=== PATIENT | male | born 1970 | race American Indian/Alaskan Native ===

== ENCOUNTER 2017-10-19 11:44 | Inpatient (IN) | payer BC ==
[2017-10-19 12:21] LABS: Basophils % (Auto) 0.9 % (0.0-1.8); Eosinophils % (Auto) 0.9 % (0.0-4.3); Mean Corpuscular HGB Conc 33 % (32-34); Mean Corpuscular Hemoglobin 32 pg (28-32); Mean Corpuscular Volume 95 fl (84-94); Platelet Count 227 K/mm3 (140-440); Red Blood Count 5.71 M/mm3 (3.65-5.03); Red Cell Distribution Width 13.3 % (13.2-15.2); White Blood Count 12.2 K/mm3 (4.5-11.0)
[2017-10-19 12:33] LABS: INR 0.96 (0.87-1.13)
[2017-10-19 12:42] LABS: Anion Gap 20 mmol/L; BUN/Creatinine Ratio 18; Blood Urea Nitrogen 22 mg/dL (9-20); Calcium 8.4 mg/dL (8.4-10.2); Carbon Dioxide 21 mmol/L (22-30); Chloride 104.4 mmol/L (98-107); Glucose 138 mg/dL (75-100); Potassium 4.5 mmol/L (3.6-5.0); Sodium 141 mmol/L (137-145)
[2017-10-19] MEDS ORDERED: LASIX IV ONE (14:20)
--- NOTE | 2017-10-19 14:23 | Emergency Department Report ---
HPI - General Chief Complaint: Dyspnea/Respdistress Time Seen by Provider: 10/19/17 14:13 - HPI HPI: Room 26 The patient is a 47-year-old male presented with a chief complaint new onset CHF. The patient states for the past 6 months he's had progressive shortness of breath, dyspnea on exertion and bilateral lower extremity edema. The patient states he decided to see his 's cardio tech, Dr. Lynn, today and had an echocardiogram performed in the office which revealed an EF of 20%. Patient was diagnosed with CHF today and sent to the ED for admission. Patient denies any forms of pain. Location: Lungs, lower extremities Duration: Progressive over 6 months Quality: Shortness of breath Severity: Moderate Modifying factors: Exertion worsens symptoms Context: [see above] Mode of transportation: Unknown ED Past Medical Hx - Past Medical History Hx Congestive Heart Failure: Yes (Dx 10/19/2017 EF 20) - Surgical History Past Surgical History?: No - Family History Family history: no significant - Social History Smoking Status: Current Every Day Smoker (1 pack per day) Substance Use Type: None (denies illicit drug use) ED Review of Systems ROS: Stated complaint: SOB Other details as noted in HPI Eyes: denies: eye pain ENT: denies: throat pain Respiratory: shortness of breath, SOB with exertion Cardiovascular: dyspnea on exertion. denies: chest pain Gastrointestinal: nausea. denies: abdominal pain, vomiting Genitourinary: denies: dysuria Musculoskeletal: denies: back pain Neurological: denies: headache Physical Exam - Physical Exam Vital Signs: Vital Signs 10/19/17 10/19/17 10/19/17 11:49 13:25 13:31 Temperature 97.9 F Pulse Rate 100 H 95 H Respiratory 20 12 Rate Blood Pressure 150/107 Blood Pressure [Right] O2 Sat by Pulse 96 93 96 Oximetry 10/19/17 10/19/17 10/19/17 13:40 13:45 14:00 Temperature Pulse Rate 89 92 H 91 H Respiratory 22 16 Rate Blood Pressure 151/115 155/123 Blood Pressure 151/115 [Right] O2 Sat by Pulse 93 94 Oximetry Physical Exam: GENERAL: The patient is well-developed well-nourished male lying on stretcher not appearing to be in acute distress. [] HEENT: Normocephalic. Atraumatic. Extraocular motions are intact. Patient has moist mucous membranes. NECK: Supple. Trachea midline CHEST/LUNGS: Clear to auscultation. There is no respiratory distress noted. HEART/CARDIOVASCULAR: Regular. There is no tachycardia. There is no gallop rub or murmur. ABDOMEN: Abdomen is soft, nontender. Patient has normal bowel sounds. There is no abdominal distention. SKIN: There is no rash. There is 1+ bilateral lower extremity pitting edema. There is no diaphoresis. NEURO: The patient is awake, alert, and oriented. The patient is cooperative. The patient has normal speech MUSCULOSKELETAL: There is no evidence of acute injury. ED Course Vital Signs 10/19/17 10/19/17 10/19/17 11:49 13:25 13:31 Temperature 97.9 F Pulse Rate 100 H 95 H Respiratory 20 12 Rate Blood Pressure 150/107 Blood Pressure [Right] O2 Sat by Pulse 96 93 96 Oximetry 10/19/17 10/19/17 10/19/17 13:40 13:45 14:00 Temperature Pulse Rate 89 92 H 91 H Respiratory 22 16 Rate Blood Pressure 151/115 155/123 Blood Pressure 151/115 [Right] O2 Sat by Pulse 93 94 Oximetry ED Medical Decision Making - Lab Data Result diagrams: 10/19/17 12:06 10/19/17 12:06 Laboratory Tests 10/19/17 10/19/17 10/19/17 12:06 12:06 12:06 WBC 12.2 H RBC 5.71 H Hgb 18.0 H Hct 54.0 H MCV 95 H MCH 32 MCHC 33 RDW 13.3 Plt Count 227 Lymph % (Auto) 21.1 [place] % (Auto) 5.1 Eos % (Auto) 0.9 Baso % (Auto) 0.9 Lymph # 2.6 [place] # 0.6 Eos # 0.1 Baso # 0.1 Seg Neutrophils % 72.0 H Seg Neutrophils # 8.8 H PT 13.3 INR 0.96 APTT 35.0 Sodium 141 Potassium 4.5 Chloride 104.4 Carbon Dioxide 21 L Anion Gap 20 BUN 22 H Creatinine 1.2 Estimated GFR > 60 BUN/Creatinine Ratio 18 Glucose 138 H Calcium 8.4 Magnesium 1.90 Troponin T < 0.010 NT-Pro-B Natriuret Pep 8125 H - EKG Data -: EKG Interpreted by Me EKG shows normal: sinus rhythm Rate: normal - EKG Data When compared to previous EKG there are: previous EKG unavailable Interpretation: other (no ischemic changes seen) - Radiology Data Radiology results: image reviewed (CXR) interpreted by me: CXR- no focal infiltrates. no ptx - Differential Diagnosis CHF, pneumonia, pneumothorax Critical care attestation.: If time is entered above; I have spent that time in minutes in the direct care of this critically ill patient, excluding procedure time. ED Disposition Clinical Impression: Congestive heart failure (CHF), Dyspnea on exertion Disposition: DC-09 OP ADMIT IP TO THIS HOSP Is pt being admited?: Yes Does the pt Need Aspirin: Yes Condition: Fair Time of Disposition: 14:48 (Hospitalist notified Dr Han))
[2017-10-19] MEDS ORDERED: ASPIRIN PO ONE (14:28)
--- NOTE | 2017-10-19 14:34 | Consultation ---
History of Present Illness Consult date: 10/19/17 Requesting physician: SIMONE PEREIRA Consult reason: congestive heart failure History of present illness: The pt is a 47 YO male with a past medical history significant for HTN and tobacco use. He was seen in our office for the first time today by Dr. Soni Lynn. He presented with c/o progressively worsening SOB with activity for the past 6 months. He also c/o some BLE swelling for the past several weeks. He denies any chest pain, orthopnea, palpitations, n/v, diaphoresis, dizziness or syncope. He underwent echocardiogram in our office which preliminarily revealed EF of 20%. Pt denies any prior cardiac history or cardiac evaluation. Past History Past Medical History: hypertension Past Surgical History: No surgical history Social history: , lives with family, smoking. denies: alcohol abuse, prescription drug abuse Family history: no significant family history Medications and Allergies Allergies Allergy/AdvReac Type Severity Reaction Status Date / Time No Known Allergies Allergy Unverified 10/19/17 11:49 Home Medications Medication Instructions Recorded Confirmed Last Taken Type No Known Home Medications [No 10/19/17 10/19/17 Unknown History Reported Home Medications] Review of Systems Constitutional: no weight loss, no weight gain, no fever, no chills, no sweats Ears, nose, mouth and throat: no ear pain, no nose pain, no sinus pressure, no sinus pain Cardiovascular: edema (BLE), shortness of breath, dyspnea on exertion, high blood pressure, leg edema, decreased exercise tolerance, no chest pain, no orthopnea, no palpitations, no rapid/irregular heart beat, no syncope, no lightheadedness, no paroxysmal nocturnal dyspnea Respiratory: shortness of breath, dyspnea on exertion, no cough, no congestion, no wheezing, no pain on inspiration Gastrointestinal: no abdominal pain, no nausea, no vomiting, no diarrhea, no constipation, no change in bowel habits Genitourinary Male: no dysuria, no hematuria, no flank pain, no discharge, no urinary frequency, no urinary hesitancy Musculoskeletal: no neck stiffness, no neck pain, no shooting arm pain, no arm numbness/tingling, no low back pain, no shooting leg pain, no leg numbness/ tingling, no redness of joints Integumentary: no rash, no pruritis, no redness, no sores, no wounds Neurological: no head injury, no paralysis, no weakness, no parathesias, no numbness, no tingling, no seizures, no syncope Psychiatric: no anxiety Endocrine: no cold intolerance, no heat intolerance Hematologic/Lymphatic: no easy bruising, no easy bleeding, no lymphadenopathy Allergic/Immunologic: no urticaria, no wheezing, no persistent infections Physical Examination Vital Signs Temp Pulse Resp BP Pulse Ox 97.9 F 100 H 20 150/107 96 10/19/17 11:49 10/19/17 11:49 10/19/17 11:49 10/19/17 11:49 10/19/17 11:49 General appearance: no acute distress HEENT: Positive: PERRL, Normocephaly, Mucus Membranes Moist Neck: Positive: neck supple, trachea midline Cardiac: Positive: Reg Rate and Rhythm, S1/S2 Lungs: Positive: clear to auscultation Neuro: Positive: Grossly Intact Abdomen: Positive: Soft. Negative: Tender Skin: Negative: Rash Musculoskeletal: No Pain, Normal Range of Motion Extremities: Present: +2 Edema (BLE ) Results 10/19/17 12:06 10/19/17 12:06 Coagulation 10/19/17 Range/Units 12:06 PT 13.3 (12.2-14.9) Sec. INR 0.96 (0.87-1.13) APTT 35.0 (24.2-36.6) Sec. CBC 10/19/17 Range/Units 12:06 WBC 12.2 H (4.5-11.0) K/mm3 RBC 5.71 H (3.65-5.03) M/mm3 Hgb 18.0 H (11.8-15.2) gm/dl Hct 54.0 H (35.5-45.6) % Plt Count 227 (140-440) K/mm3 Lymph # 2.6 (1.2-5.4) K/mm3 [place] # 0.6 (0.0-0.8) K/mm3 Eos # 0.1 (0.0-0.4) K/mm3 Baso # 0.1 (0.0-0.1) K/mm3 Comprehensive Metabolic Panel 10/19/17 Range/Units 12:06 Sodium 141 (137-145) mmol/L Potassium 4.5 (3.6-5.0) mmol/L Chloride 104.4 (98-107) mmol/L Carbon Dioxide 21 L (22-30) mmol/L BUN 22 H (9-20) mg/dL Creatinine 1.2 (0.8-1.5) mg/dL Glucose 138 H (75-100) mg/dL Calcium 8.4 (8.4-10.2) mg/dL - Imaging and Cardiology Echo: pending EKG: report reviewed, image reviewed EKG interpretations - Telemetry EKG Rhythm: Sinus Rhythm - EKG Sinus rhythms and dysrhythmias: sinus rhythm Assessment and Plan Initiate diuresis with IV lasix. Monitor renal indices. Optimize anti-hypertensive regimen. Plan for ischemic evaluation once medically stabilized. Assessment and plan reviewed with pt and pt's at bedside. The patient has been seen in conjunction with Dr. Montoya who agrees with the assessment and plan of care. - Patient Problems (1) Acute systolic heart failure Current Visit: Yes Status: Acute (2) Cardiomyopathy Current Visit: Yes Status: Acute (3) Hypertension Current Visit: Yes Status: Chronic (4) Leukocytosis Current Visit: Yes Status: Acute (5) Tobacco use Current Visit: Yes Status: Chronic
[2017-10-19] MEDS ORDERED: MILK OF MAGNESIA PO PRN (14:53)
[2017-10-19] MEDS ORDERED: ZOFRAN IV PRN (14:53)
[2017-10-19] MEDS ORDERED: DULCOLAX PR PRN (14:53)
[2017-10-19] MEDS ORDERED: PROVENTIL IH PRN (14:53)
[2017-10-19] MEDS ORDERED: TYLENOL PO PRN (14:53)
--- NOTE | 2017-10-19 15:17 | XRay Report ---
AP CHEST: HISTORY: Shortness of breath AP view of the chest demonstrates a normal mediastinal and cardiac contour with clear lungs and normal bony and soft tissue structures. IMPRESSION: Unremarkable AP chest.
--- NOTE | 2017-10-19 16:58 | History and Physical Report ---
History of Present Illness Date of admission: 10/19/17 14:53 Chief complaint: I cant breathe History of present illness: 47 YO Male with HTN, Systolic CHF, Nicotine Dependence presents to ED for evaluation. Pt states that he has experienced shortness of breath and dypsnea on exertion for the past 6 months. Pt was seen in his cardiologists office today and found to have symptoms consistent with acute systolic CHF. Pt underwent Echo and found to have EF of 20%. Pt was sent to ED for evaluation. Pt acknowledges the aforementioned symptoms but denies fever, chills, palpitations, NVD, Syncope, productive cough, BRBPR, unintentional weight loss, night sweats, or recent ill contacts. Pt seen and evaluated in ED and found to have respiratory distress and treated with supplemental oxygen, nebulizer therapy, and diuresis. Cardiology Consulted in ED. Past History Past Medical History: hypertension Past Surgical History: No surgical history Social history: , lives with family, smoking. denies: alcohol abuse, prescription drug abuse Family history: no significant family history Medications and Allergies Allergies Allergy/AdvReac Type Severity Reaction Status Date / Time No Known Allergies Allergy Unverified 10/19/17 11:49 Home Medications Medication Instructions Recorded Confirmed Last Taken Type No Known Home Medications [No 10/19/17 10/19/17 Unknown History Reported Home Medications] Active Meds: Active Medications Acetaminophen (Tylenol) 650 mg PO Q4H PRN PRN Reason: Pain MILD(1-3)/Fever >100.5/AGUIRRE Albuterol (Proventil) 2.5 mg IH Q4HRT PRN PRN Reason: Shortness Of Breath Bisacodyl (Dulcolax) 10 mg NH QDAY PRN PRN Reason: Constipation unrelieved by MOM Carvedilol (Coreg) 25 mg PO BID [place] Furosemide (Lasix) 20 mg IV BID@0600,1800 [place] Hydralazine HCl (Apresoline) 50 mg PO TID [place] Lisinopril (Zestril) 40 mg PO QDAY [place] Magnesium Hydroxide (Milk Of Magnesia) 30 ml PO Q4H PRN PRN Reason: Constipation Ondansetron HCl (Zofran) 4 mg IV Q8H PRN PRN Reason: N/V unrelieved by Reglan Review of Systems Constitutional: no weight loss, no weight gain, no fever, no chills, no sweats Cardiovascular: edema, shortness of breath, dyspnea on exertion, no chest pain, no orthopnea, no palpitations Respiratory: no cough, no cough with sputum, no excessive sputum, no hemoptysis Gastrointestinal: no abdominal pain, no nausea, no vomiting, no diarrhea Genitourinary Male: no hematuria, no flank pain, no urinary frequency, no urinary hesitancy Rectal: no pain, no incontinence, no bleeding Musculoskeletal: no neck stiffness, no neck pain, no shooting arm pain, no arm numbness/tingling Integumentary: no rash, no pruritis, no redness Neurological: no head injury, no paralysis, no weakness, no parathesias, no numbness, no tingling, no seizures Psychiatric: no anxiety, no memory loss, no change in sleep habits, no sleep disturbances, no insomnia, no hypersomnia, no change in appetite, no change in libido Endocrine: no cold intolerance, no heat intolerance, no polyphagia, no excessive thirst, no polydipsia, no polyuria Hematologic/Lymphatic: no easy bruising, no easy bleeding Allergic/Immunologic: no urticaria, no allergic rhinitis, no wheezing Exam - Constitutional Vitals: Temp Pulse Resp BP Pulse Ox 97.9 F 91 H 16 155/123 94 10/19/17 11:49 10/19/17 14:00 10/19/17 14:00 10/19/17 14:00 10/19/17 14:00 General appearance: Present: mild distress - EENT Eyes: Present: PERRL ENT: hearing intact, clear oral mucosa - Neck Neck: Present: supple, normal ROM - Respiratory Respiratory effort: labored Respiratory: bilateral: diminished, rhonchi - Cardiovascular Heart Sounds: Present: S1 & S2. Absent: rub, click - Extremities Extremities: pulses symmetrical, No edema Extremity abnormal: edema Peripheral Pulses: within normal limits - Abdominal General gastrointestinal: Present: soft, non-tender, non-distended, normal bowel sounds Male genitourinary: Present: normal - Integumentary Integumentary: Present: clear, warm, dry - Musculoskeletal Musculoskeletal: gait normal, strength equal bilaterally - Psychiatric Psychiatric: appropriate mood/affect, intact judgment & insight - Neurologic Neurologic: CNII-XII intact, moves all extremities Results - Labs CBC & Chem 7: 10/19/17 12:06 10/19/17 12:06 Labs: Abnormal lab results 10/19/17 10/19/17 Range/Units 12: 12:06 WBC 12.2 H (4.5-11.0) K/mm3 RBC 5.71 H (3.65-5.03) M/mm3 Hgb 18.0 H (11.8-15.2) gm/dl Hct 54.0 H (35.5-45.6) % MCV 95 H (84-94) fl Seg Neutrophils % 72.0 H (40.0-70.0) % Seg Neutrophils # 8.8 H (1.8-7.7) K/mm3 Carbon Dioxide 21 L (22-30) mmol/L BUN 22 H (9-20) mg/dL Glucose 138 H (75-100) mg/dL NT-Pro-B Natriuret Pep 8125 H (0-450) pg/mL Assessment and Plan - Patient Problems (1) Acute systolic heart failure Current Visit: Yes Status: Acute Plan to address problem: Cardiology consulted, Admit to telemetry, fluid restriction, afterload reduction , diuresis, monitor uop q shift. (2) Accelerated hypertension Current Visit: Yes Status: Acute Plan to address problem: monitor bp q shift, continue medical management (3) Respiratory failure Current Visit: Yes Status: Acute Plan to address problem: Supplemental oxygen, nebs, aspiration precautions, supportive care, (4) Nicotine dependence Current Visit: Yes Status: Acute Plan to address problem: Pt refused to pick quit date, (5) DVT prophylaxis Current Visit: Yes Status: Acute
[2017-10-19] MEDS ORDERED: LASIX IV SCH (18:00)
[2017-10-19] MEDS: LASIX IV SCH (18:39)
[2017-10-19] MEDS ORDERED: COREG PO SCH (22:00)
[2017-10-19] MEDS ORDERED: LOPRESSOR PO SCH (22:00)
[2017-10-19] MEDS: APRESOLINE PO SCH (22:23)
[2017-10-20] MEDS: LASIX IV SCH ×2 (06:04→18:15)
[2017-10-20 07:06] LABS: Bilirubin,Urine NEG (Negative); Blood,Urine NEG (Negative); Ketones,Urine NEG (Negative); Leukocyte Esterase,Urine NEG (Negative); Mucus,Urine FEW /HPF; Nitrite,Urine NEG (Negative); Urobilinogen,Urine < 2.0 mg/dL (<2.0)
[2017-10-20 07:21] LABS: Anion Gap 21 mmol/L; BUN/Creatinine Ratio 20; Blood Urea Nitrogen 24 mg/dL (9-20); Calcium 8.5 mg/dL (8.4-10.2); Carbon Dioxide 22 mmol/L (22-30); Chloride 99.6 mmol/L (98-107); Glucose 114 mg/dL (75-100); Potassium 4.6 mmol/L (3.6-5.0); Sodium 138 mmol/L (137-145)
[2017-10-20] MEDS ORDERED: ZESTRIL PO SCH (10:00)
[2017-10-20 10:33] LABS: Hematocrit 56.2 % (35.5-45.6); Hemoglobin 18.8 gm/dl (11.8-15.2); Mean Corpuscular HGB Conc 34 % (32-34); Mean Corpuscular Hemoglobin 32 pg (28-32); Mean Corpuscular Volume 94 fl (84-94); Platelet Count 260 K/mm3 (140-440); Red Blood Count 5.98 M/mm3 (3.65-5.03); Red Cell Distribution Width 12.9 % (13.2-15.2)
--- NOTE | 2017-10-20 11:41 | Progress Note ---
Assessment and Plan He will benefit from coronary angiography for ischemic evaluation and also to better define his cardiomyopathy. The test has been discussed with him in detail and he has agreed to proceed. We'll schedule for tomorrow morning. - Patient Problems (1) Acute combined systolic and diastolic heart failure Current Visit: Yes Status: Acute (2) Cardiomyopathy Current Visit: Yes Status: Acute (3) Accelerated hypertension Current Visit: Yes Status: Acute Subjective Date of service: 10/20/17 Principal diagnosis: Acute combined S&D HF, Accelerated HTN Interval history: He feels much better today. Objective Vital Signs Last Vital Signs Temp 97.2 F L 10/20/17 09:04 Pulse 85 10/20/17 09:04 Resp 18 10/20/17 09:04 BP 128/95 10/20/17 09:04 Pulse Ox 94 10/20/17 09:04 - Physical Examination General: No Apparent Distress HEENT: Positive: Normocephaly, Mucus Membranes Moist Neck: Positive: neck supple, trachea midline, JVD/HJR (elevated) Cardiac: Positive: Reg Rate and Rhythm, S1/S2 Lungs: Positive: clear to auscultation Neuro: Positive: Grossly Intact Abdomen: Positive: Soft, Active Bowel Sounds. Negative: Tender Skin: Negative: Rash Musculoskeletal: Normal Range of Motion Extremities: Absent: edema - Labs and Meds Coagulation 10/19/17 Range/Units 12:06 PT 13.3 (12.2-14.9) Sec. INR 0.96 (0.87-1.13) APTT 35.0 (24.2-36.6) Sec. CBC 10/19/17 10/20/17 Range/Units 12:06 09:18 WBC 12.2 H 13.0 H (4.5-11.0) K/mm3 RBC 5.71 H 5.98 H (3.65-5.03) M/mm3 Hgb 18.0 H 18.8 H (11.8-15.2) gm/dl Hct 54.0 H 56.2 H (35.5-45.6) % Plt Count 227 260 (140-440) K/mm3 Lymph # 2.6 (1.2-5.4) K/mm3 [place] # 0.6 (0.0-0.8) K/mm3 Eos # 0.1 (0.0-0.4) K/mm3 Baso # 0.1 (0.0-0.1) K/mm3 Comprehensive Metabolic Panel 10/19/17 10/20/17 Range/Units 12:06 06:17 Sodium 141 138 (137-145) mmol/L Potassium 4.5 4.6 (3.6-5.0) mmol/L Chloride 104.4 99.6 (98-107) mmol/L Carbon Dioxide 21 L 22 (22-30) mmol/L BUN 22 H 24 H (9-20) mg/dL Creatinine 1.2 1.2 (0.8-1.5) mg/dL Glucose 138 H 114 H (75-100) mg/dL Calcium 8.4 8.5 (8.4-10.2) mg/dL - Imaging and Cardiology EKG: report reviewed, image reviewed Echo: image reviewed (normal LV cavity size with severe global hypokinesis. EF : 15-20%. Restrictive pattern of diastolic LV dysfunction, moderate MR and TR.) - Telemetry EKG Rhythm: Sinus Rhythm - EKG Sinus rhythms and dysrhythmias: sinus rhythm
--- NOTE | 2017-10-20 11:58 | Progress Note ---
<YVON ROSS M - Last Filed: 10/20/17 18:39> History Interval history: I saw and evaluated the patient. I agree with the findings and the plan of care as documented in the PA's progress note, with the following corrections and additions. Hospitalist Physical - Constitutional Vitals: Temp Pulse Resp BP Pulse Ox 98.1 F 73 18 135/97 95 10/20/17 17:50 10/20/17 18:33 10/20/17 17:50 10/20/17 18:33 10/20/17 17:50 Results - Labs CBC & Chem 7: 10/20/17 09:18 10/20/17 06:17 Labs: Laboratory Last Values WBC 13.0 K/mm3 (4.5-11.0) H 10/20/17 09:18 RBC 5.98 M/mm3 (3.65-5.03) H 10/20/17 09:18 Hgb 18.8 gm/dl (11.8-15.2) H 10/20/17 09:18 Hct 56.2 % (35.5-45.6) H 10/20/17 09:18 MCV 94 fl (84-94) 10/20/17 09:18 MCH 32 pg (28-32) 10/20/17 09:18 MCHC 34 % (32-34) 10/20/17 09:18 RDW 12.9 % (13.2-15.2) L 10/20/17 09:18 Plt Count 260 K/mm3 (140-440) 10/20/17 09:18 Lymph % (Auto) 21.1 % (13.4-35.0) 10/19/17 12:06 [place] % (Auto) 5.1 % (0.0-7.3) 10/19/17 12:06 Eos % (Auto) 0.9 % (0.0-4.3) 10/19/17 12:06 Baso % (Auto) 0.9 % (0.0-1.8) 10/19/17 12:06 Lymph # 2.6 K/mm3 (1.2-5.4) 10/19/17 12:06 [place] # 0.6 K/mm3 (0.0-0.8) 10/19/17 12:06 Eos # 0.1 K/mm3 (0.0-0.4) 10/19/17 12:06 Baso # 0.1 K/mm3 (0.0-0.1) 10/19/17 12:06 Seg Neutrophils % 72.0 % (40.0-70.0) H 10/19/17 12:06 Seg Neutrophils # 8.8 K/mm3 (1.8-7.7) H 10/19/17 12:06 PT 13.3 Sec. (12.2-14.9) 10/19/17 12:06 INR 0.96 (0.87-1.13) 10/19/17 12:06 APTT 35.0 Sec. (24.2-36.6) 10/19/17 12:06 D-Dimer 163.83 ng/mlDDU (0-234) 10/20/17 09:18 Sodium 138 mmol/L (137-145) 10/20/17 06:17 Potassium 4.6 mmol/L (3.6-5.0) 10/20/17 06:17 Chloride 99.6 mmol/L (98-107) 10/20/17 06:17 Carbon Dioxide 22 mmol/L (22-30) 10/20/17 06:17 Anion Gap 21 mmol/L 10/20/17 06:17 BUN 24 mg/dL (9-20) H 10/20/17 06:17 Creatinine 1.2 mg/dL (0.8-1.5) 10/20/17 06:17 Estimated GFR > 60 ml/min 10/20/17 06:17 BUN/Creatinine Ratio 20 % 10/20/17 06:17 Glucose 114 mg/dL (75-100) H 10/20/17 06:17 Calcium 8.5 mg/dL (8.4-10.2) 10/20/17 06:17 Magnesium 1.90 mg/dL (1.7-2.3) 10/19/17 12:06 Troponin T < 0.010 ng/mL (0.00-0.029) 10/19/17 20:38 NT-Pro-B Natriuret Pep 8125 pg/mL (0-450) H 10/19/17 12:06 Urine Color Yellow (Yellow) 10/20/17 06:00 Urine Turbidity Clear (Clear) 10/20/17 06:00 Urine pH 5.0 (5.0-7.0) 10/20/17 06:00 Ur Specific [place] 1.016 (1.003-1.030) 10/20/17 06:00 Urine Protein 100 mg/dl mg/dL (Negative) 10/20/17 06:00 Urine Glucose (UA) Neg mg/dL (Negative) 10/20/17 06:00 Urine Ketones Neg mg/dL (Negative) 10/20/17 06:00 Urine Blood Neg (Negative) 10/20/17 06:00 Urine Nitrite Neg (Negative) 10/20/17 06:00 Urine Bilirubin Neg (Negative) 10/20/17 06:00 Urine Urobilinogen < 2.0 mg/dL (<2.0) 10/20/17 06:00 Ur Leukocyte Esterase Neg (Negative) 10/20/17 06:00 Urine WBC (Auto) 2.0 /HPF (0.0-6.0) 10/20/17 06:00 Urine RBC (Auto) 1.0 /HPF (0.0-6.0) 10/20/17 06:00 U Epithel Cells (Auto) < 1.0 /HPF (0-13.0) 10/20/17 06:00 Urine Mucus Few /HPF 10/20/17 06:00 <OBINNA STODDARD - Last Filed: 10/21/17 08:34> Assessment and Plan Assessment and plan: 47 YO Male with HTN, Systolic CHF, Nicotine Dependence presents to ED for evaluation. Pt states that he has experienced shortness of breath and dypsnea on exertion for the past 6 months. Pt was seen in his cardiologists office today and found to have symptoms consistent with acute systolic CHF. Pt underwent Echo and found to have EF of 20%. Pt was sent to ED for evaluation. Pt acknowledges the aforementioned symptoms but denies fever, chills, palpitations, NVD, Syncope, productive cough, BRBPR, unintentional weight loss, night sweats, or recent ill contacts. Pt seen and evaluated in ED and found to have respiratory distress and treated with supplemental oxygen, nebulizer therapy, and diuresis. Acute combined systolic and diastolic heart failure - Cardiology following - coronary angiography for ischemic evaluation tomorrow - Continue fluid restriction, afterload reduction, diuresis, monitor uop q shift. - EF 15-20% Accelerated hypertension -monitor bp q shift, continue medical management Respiratory failure -Supplemental oxygen, nebs, aspiration precautions, supportive care, Nicotine dependence -Nicotine patch -Patient quit date is today DVT prophylaxis Heparin History Interval history: Patient awake and alert, Denies CP,SOB, [place] Hospitalist Physical - Constitutional Vitals: Temp Pulse Resp BP Pulse Ox 97.2 F L 85 18 128/95 94 10/20/17 09:04 10/20/17 09:04 10/20/17 09:04 10/20/17 09:04 10/20/17 09:04 General appearance: Present: no acute distress - EENT Eyes: Present: PERRL, EOM intact ENT: hearing intact, clear oral mucosa - Neck Neck: Present: supple, normal ROM - Respiratory Respiratory effort: normal Respiratory: bilateral: CTA - Cardiovascular Rhythm: regular Heart Sounds: Present: S1 & S2 - Extremities Extremities: no ischemia, No edema Peripheral Pulses: within normal limits - Abdominal General gastrointestinal: soft, non-tender - Integumentary Integumentary: Present: clear, warm, dry - Psychiatric Psychiatric: appropriate mood/affect, cooperative - Neurologic Neurologic: CNII-XII intact, moves all extremities - Allied Health Allied health notes reviewed: nursing Results - Labs CBC & Chem 7: 10/21/17 05:17 10/21/17 05:17 Labs: Laboratory Last Values WBC 13.0 K/mm3 (4.5-11.0) H 10/20/17 09:18 RBC 5.98 M/mm3 (3.65-5.03) H 10/20/17 09:18 Hgb 18.8 gm/dl (11.8-15.2) H 10/20/17 09:18 Hct 56.2 % (35.5-45.6) H 10/20/17 09:18 MCV 94 fl (84-94) 10/20/17 09:18 MCH 32 pg (28-32) 10/20/17 09:18 MCHC 34 % (32-34) 10/20/17 09:18 RDW 12.9 % (13.2-15.2) L 10/20/17 09:18 Plt Count 260 K/mm3 (140-440) 10/20/17 09:18 Lymph % (Auto) 21.1 % (13.4-35.0) 10/19/17 12:06 [place] % (Auto) 5.1 % (0.0-7.3) 10/19/17 12:06 Eos % (Auto) 0.9 % (0.0-4.3) 10/19/17 12:06 Baso % (Auto) 0.9 % (0.0-1.8) 10/19/17 12:06 Lymph # 2.6 K/mm3 (1.2-5.4) 10/19/17 12:06 [place] # 0.6 K/mm3 (0.0-0.8) 10/19/17 12:06 Eos # 0.1 K/mm3 (0.0-0.4) 10/19/17 12:06 Baso # 0.1 K/mm3 (0.0-0.1) 10/19/17 12:06 Seg Neutrophils % 72.0 % (40.0-70.0) H 10/19/17 12:06 Seg Neutrophils # 8.8 K/mm3 (1.8-7.7) H 10/19/17 12:06 PT 13.3 Sec. (12.2-14.9) 10/19/17 12:06 INR 0.96 (0.87-1.13) 10/19/17 12:06 APTT 35.0 Sec. (24.2-36.6) 10/19/17 12:06 D-Dimer 163.83 ng/mlDDU (0-234) 10/20/17 09:18 Sodium 138 mmol/L (137-145) 10/20/17 06:17 Potassium 4.6 mmol/L (3.6-5.0) 10/20/17 06:17 Chloride 99.6 mmol/L (98-107) 10/20/17 06:17 Carbon Dioxide 22 mmol/L (22-30) 10/20/17 06:17 Anion Gap 21 mmol/L 10/20/17 06:17 BUN 24 mg/dL (9-20) H 10/20/17 06:17 Creatinine 1.2 mg/dL (0.8-1.5) 10/20/17 06:17 Estimated GFR > 60 ml/min 10/20/17 06:17 BUN/Creatinine Ratio 20 % 10/20/17 06:17 Glucose 114 mg/dL (75-100) H 10/20/17 06:17 Calcium 8.5 mg/dL (8.4-10.2) 10/20/17 06:17 Magnesium 1.90 mg/dL (1.7-2.3) 10/19/17 12:06 Troponin T < 0.010 ng/mL (0.00-0.029) 10/19/17 20:38 NT-Pro-B Natriuret Pep 8125 pg/mL (0-450) H 10/19/17 12:06 Urine Color Yellow (Yellow) 10/20/17 06:00 Urine Turbidity Clear (Clear) 10/20/17 06:00 Urine pH 5.0 (5.0-7.0) 10/20/17 06:00 Ur Specific [place] 1.016 (1.003-1.030) 10/20/17 06:00 Urine Protein 100 mg/dl mg/dL (Negative) 10/20/17 06:00 Urine Glucose (UA) Neg mg/dL (Negative) 10/20/17 06:00 Urine Ketones Neg mg/dL (Negative) 10/20/17 06:00 Urine Blood Neg (Negative) 10/20/17 06:00 Urine Nitrite Neg (Negative) 10/20/17 06:00 Urine Bilirubin Neg (Negative) 10/20/17 06:00 Urine Urobilinogen < 2.0 mg/dL (<2.0) 10/20/17 06:00 Ur Leukocyte Esterase Neg (Negative) 10/20/17 06:00 Urine WBC (Auto) 2.0 /HPF (0.0-6.0) 10/20/17 06:00 Urine RBC (Auto) 1.0 /HPF (0.0-6.0) 10/20/17 06:00 U Epithel Cells (Auto) < 1.0 /HPF (0-13.0) 10/20/17 06:00 Urine Mucus Few /HPF 10/20/17 06:00
[2017-10-20] MEDS ORDERED: NACL 0.9% 500 ML 500 ML IV SCH (12:00)
[2017-10-20] MEDS: APRESOLINE PO SCH ×3 (12:28→21:30)
[2017-10-20] MEDS: HABITROL TD SCH (12:29)
[2017-10-20] MEDS: COREG PO SCH ×2 (12:31→22:45)
[2017-10-20] MEDS: ZESTRIL PO SCH (17:00)
[2017-10-20] MEDS: HEPARIN SUB-Q SCH (22:46)
[2017-10-21 05:46] LABS: Hemoglobin 19.9 gm/dl (11.8-15.2); Mean Corpuscular HGB Conc 34 % (32-34); Mean Corpuscular Hemoglobin 32 pg (28-32); Mean Corpuscular Volume 93 fl (84-94); Platelet Count 269 K/mm3 (140-440); Red Blood Count 6.33 M/mm3 (3.65-5.03); Red Cell Distribution Width 13.2 % (13.2-15.2)
[2017-10-21 05:56] LABS: INR 1.03 (0.87-1.13)
[2017-10-21 06:03] LABS: Anion Gap 22 mmol/L; BUN/Creatinine Ratio 21; Blood Urea Nitrogen 30 mg/dL (9-20); Calcium 8.9 mg/dL (8.4-10.2); Carbon Dioxide 21 mmol/L (22-30); Glucose 126 mg/dL (75-100); Potassium 5.1 mmol/L (3.6-5.0); Sodium 138 mmol/L (137-145)
[2017-10-21] MEDS: LASIX IV SCH (07:00)
[2017-10-21] MEDS: HEPARIN SUB-Q SCH ×3 (07:00→22:04)
[2017-10-21] MEDS ORDERED: ECOTRIN PO NR (08:00)
[2017-10-21] MEDS ORDERED: ECOTRIN PO ONE (08:06)
[2017-10-21] MEDS ORDERED: HEPARIN 10,000 UNITS/10 ML ONE (08:27)
[2017-10-21] MEDS ORDERED: HEPARIN/NS 5000 UNIT/500ML(CATH LAB) 1,000 ML IR ONE (08:27)
[2017-10-21] MEDS ORDERED: NITROGLYCERIN SYRINGE 3 ML ONE (08:27)
[2017-10-21] MEDS ORDERED: XYLOCAINE 2% INFILTRATI ONE (08:27)
[2017-10-21] MEDS ORDERED: CALAN ONE (08:27)
[2017-10-21] MEDS ORDERED: VERSED ONE (08:28)
[2017-10-21] MEDS ORDERED: SUBLIMAZE ONE (08:29)
[2017-10-21] MEDS: APRESOLINE PO SCH ×3 (08:39→22:03)
[2017-10-21] MEDS ORDERED: NACL 0.9% 500 ML 500 ML ONE (08:48)
--- NOTE | 2017-10-21 09:14 | Progress Note ---
Assessment and Plan acute systolic heart failure non ischemic cmp htn polycethymia smoking cessation recommended rec: cont current meds, low dose lasix every other day and followup with cardiology next week. discuss with pt and results. Subjective Date of service: 10/21/17 Principal diagnosis: Acute combined S&D HF, Accelerated HTN Interval history: pt sob is improved and able to ly flat Objective Vital Signs Temp Pulse Resp BP BP Pulse Ox 10/21/17 07:37 97.5 F L 74 18 128/89 94 10/21/17 05:30 71 10/21/17 04:40 98.2 F 74 18 123/90 93 10/20/17 22:45 81 121/96 10/20/17 22:03 9 L 10/20/17 22:00 77 10/20/17 21:30 81 121/96 10/20/17 19:49 97.9 F 71 22 121/96 95 10/20/17 18:33 73 135/97 10/20/17 17:50 98.1 F 76 18 144/96 95 10/20/17 17:00 76 144/96 10/20/17 13:00 98.3 F 79 18 117/88 97 10/20/17 12:31 73 135/97 10/20/17 12:28 73 135/97 10/20/17 10:00 94 - Physical Examination General: No Apparent Distress HEENT: Positive: Normocephaly, Mucus Membranes Moist Neck: Positive: neck supple, trachea midline, JVD/HJR (elevated) Cardiac: Positive: Reg Rate and Rhythm Lungs: Positive: clear to auscultation Neuro: Positive: Grossly Intact Abdomen: Positive: Soft, Active Bowel Sounds. Negative: Tender Skin: Negative: Rash Musculoskeletal: Normal Range of Motion Extremities: Absent: edema - Labs and Meds Coagulation 10/21/17 Range/Units 05:17 PT 14.0 (12.2-14.9) Sec. INR 1.03 (0.87-1.13) CBC 10/20/17 10/21/17 Range/Units 09:18 05:17 WBC 13.0 H 15.0 H (4.5-11.0) K/mm3 RBC 5.98 H 6.33 H (3.65-5.03) M/mm3 Hgb 18.8 H 19.9 H (11.8-15.2) gm/dl Hct 56.2 H 59.0 H (35.5-45.6) % Plt Count 260 269 (140-440) K/mm3 Comprehensive Metabolic Panel 10/21/17 Range/Units 05:17 Sodium 138 (137-145) mmol/L Potassium 5.1 H (3.6-5.0) mmol/L Chloride 100.0 (98-107) mmol/L Carbon Dioxide 21 L (22-30) mmol/L BUN 30 H (9-20) mg/dL Creatinine 1.4 (0.8-1.5) mg/dL Glucose 126 H (75-100) mg/dL Calcium 8.9 (8.4-10.2) mg/dL - Imaging and Cardiology EKG: report reviewed, image reviewed Echo: image reviewed (normal LV cavity size with severe global hypokinesis. EF : 15-20%. Restrictive pattern of diastolic LV dysfunction, moderate MR and TR.) Cardiac cath: report reviewed (normal coronaries and severe lv dsyfunction ) - Telemetry EKG Rhythm: Sinus Rhythm - EKG Sinus rhythms and dysrhythmias: sinus rhythm
[2017-10-21] MEDS ORDERED: LASIX PO SCH (10:00)
--- NOTE | 2017-10-21 10:12 | Progress Note ---
<OBINNA STODDARD - Last Filed: 10/24/17 13:38> Assessment and Plan Assessment and plan: 47 YO Male with HTN, Systolic CHF, Nicotine Dependence presents to ED for evaluation. Pt states that he has experienced shortness of breath and dypsnea on exertion for the past 6 months. Pt was seen in his cardiologists office today and found to have symptoms consistent with acute systolic CHF. Pt underwent Echo and found to have EF of 20%. Pt was sent to ED for evaluation. Pt acknowledges the aforementioned symptoms but denies fever, chills, palpitations, NVD, Syncope, productive cough, BRBPR, unintentional weight loss, night sweats, or recent ill contacts. Pt seen and evaluated in ED and found to have respiratory distress and treated with supplemental oxygen, nebulizer therapy, and diuresis. Acute systolic heart failure - Cardiology following - s/p [facility] this AM which showed normal coronary arteries , severe LV dysfunction, NICMP. Hold diuretics at this time given increase in serum Cr and repeat BMP in AM. Likely discharge home tomorrow AM. - Continue fluid restriction, afterload reduction, monitor uop q shift. - EF 15-20% Accelerated hypertension -monitor bp q shift, continue medical management Respiratory failure -Supplemental oxygen, nebs, aspiration precautions, supportive care, Nicotine dependence -Nicotine patch -Patient trying to quit DVT prophylaxis Heparin History Interval history: Patient awake and alert, Denies CP,SOB, [place] Hospitalist Physical - Constitutional Vitals: Temp Pulse Resp BP Pulse Ox 97.5 F L 74 18 128/89 94 10/21/17 07:37 10/21/17 07:37 10/21/17 07:37 10/21/17 07:37 10/21/17 07:37 General appearance: Present: no acute distress - EENT Eyes: Present: PERRL, EOM intact ENT: hearing intact, clear oral mucosa - Neck Neck: Present: supple, normal ROM - Respiratory Respiratory effort: normal Respiratory: bilateral: CTA - Cardiovascular Rhythm: regular Heart Sounds: Present: S1 & S2 - Extremities Extremities: no ischemia, No edema Peripheral Pulses: within normal limits - Abdominal General gastrointestinal: soft, non-tender - Integumentary Integumentary: Present: clear, warm, dry - Psychiatric Psychiatric: appropriate mood/affect, cooperative - Neurologic Neurologic: CNII-XII intact, moves all extremities - Allied Health Allied health notes reviewed: nursing Results - Labs CBC & Chem 7: 10/21/17 05:17 12 05:17 Labs: Laboratory Last Values WBC 15.0 K/mm3 (4.5-11.0) H 10/21/17 05:17 RBC 6.33 M/mm3 (3.65-5.03) H 10/21/17 05:17 Hgb 19.9 gm/dl (11.8-15.2) H 10/21/17 05:17 Hct 59.0 % (35.5-45.6) H 10/21/17 05:17 MCV 93 fl (84-94) 10/21/17 05:17 MCH 32 pg (28-32) 10/21/17 05:17 MCHC 34 % (32-34) 10/21/17 05:17 RDW 13.2 % (13.2-15.2) 10/21/17 05:17 Plt Count 269 K/mm3 (140-440) 10/21/17 05:17 Lymph % (Auto) 21.1 % (13.4-35.0) 10/19/17 12:06 [place] % (Auto) 5.1 % (0.0-7.3) 10/19/17 12:06 Eos % (Auto) 0.9 % (0.0-4.3) 10/19/17 12:06 Baso % (Auto) 0.9 % (0.0-1.8) 10/19/17 12:06 Lymph # 2.6 K/mm3 (1.2-5.4) 10/19/17 12:06 [place] # 0.6 K/mm3 (0.0-0.8) 10/19/17 12:06 Eos # 0.1 K/mm3 (0.0-0.4) 10/19/17 12:06 Baso # 0.1 K/mm3 (0.0-0.1) 10/19/17 12:06 Seg Neutrophils % 72.0 % (40.0-70.0) H 10/19/17 12:06 Seg Neutrophils # 8.8 K/mm3 (1.8-7.7) H 10/19/17 12:06 PT 14.0 Sec. (12.2-14.9) 10/21/17 05:17 INR 1.03 (0.87-1.13) 10/21/17 05:17 APTT 35.0 Sec. (24.2-36.6) 10/19/17 12:06 D-Dimer 163.83 ng/mlDDU (0-234) 10/20/17 09:18 Sodium 138 mmol/L (137-145) 10/21/17 05:17 Potassium 5.1 mmol/L (3.6-5.0) H 10/21/17 05:17 Chloride 100.0 mmol/L (98-107) 10/21/17 05:17 Carbon Dioxide 21 mmol/L (22-30) L 10/21/17 05:17 Anion Gap 22 mmol/L 10/21/17 05:17 BUN 30 mg/dL (9-20) H 10/21/17 05:17 Creatinine 1.4 mg/dL (0.8-1.5) 10/21/17 05:17 Estimated GFR > 60 ml/min 10/21/17 05:17 BUN/Creatinine Ratio 21 % 10/21/17 05:17 Glucose 126 mg/dL (75-100) H 10/21/17 05:17 Calcium 8.9 mg/dL (8.4-10.2) 10/21/17 05:17 Magnesium 1.90 mg/dL (1.7-2.3) 10/19/17 12:06 Troponin T < 0.010 ng/mL (0.00-0.029) 10/19/17 20:38 NT-Pro-B Natriuret Pep 8125 pg/mL (0-450) H 10/19/17 12:06 Urine Color Yellow (Yellow) 10/20/17 06:00 Urine Turbidity Clear (Clear) 10/20/17 06:00 Urine pH 5.0 (5.0-7.0) 10/20/17 06:00 Ur Specific [place] 1.016 (1.003-1.030) 10/20/17 06:00 Urine Protein 100 mg/dl mg/dL (Negative) 10/20/17 06:00 Urine Glucose (UA) Neg mg/dL (Negative) 10/20/17 06:00 Urine Ketones Neg mg/dL (Negative) 10/20/17 06:00 Urine Blood Neg (Negative) 10/20/17 06:00 Urine Nitrite Neg (Negative) 10/20/17 06:00 Urine Bilirubin Neg (Negative) 10/20/17 06:00 Urine Urobilinogen < 2.0 mg/dL (<2.0) 10/20/17 06:00 Ur Leukocyte Esterase Neg (Negative) 10/20/17 06:00 Urine WBC (Auto) 2.0 /HPF (0.0-6.0) 10/20/17 06:00 Urine RBC (Auto) 1.0 /HPF (0.0-6.0) 10/20/17 06:00 U Epithel Cells (Auto) < 1.0 /HPF (0-13.0) 10/20/17 06:00 Urine Mucus Few /HPF 10/20/17 06:00 <YVON ROSS M - Last Filed: 10/24/17 18:24> Assessment and Plan Assessment and plan: I saw and evaluated the patient. I agree with the findings and the plan of care as documented in the PA's progress note. - Patient Problems (1) Accelerated hypertension Status: Acute (2) Acute systolic heart failure Status: Acute Hospitalist Physical - Constitutional Vitals: Temp Pulse Resp BP Pulse Ox 98.2 F 73 18 116/83 93 10/22/17 09:22 10/22/17 11:09 10/22/17 10:00 10/22/17 11:09 10/22/17 10:00 Results - Labs CBC & Chem 7: 10/22/17 02:36 10/22/17 02:36 Labs: Laboratory Last Values WBC 14.0 K/mm3 (4.5-11.0) H 10/22/17 02:36 RBC 6.09 M/mm3 (3.65-5.03) H 10/22/17 02:36 Hgb 19.0 gm/dl (11.8-15.2) H 10/22/17 02:36 Hct 56.7 % (35.5-45.6) H 10/22/17 02:36 MCV 93 fl (84-94) 10/22/17 02:36 MCH 31 pg (28-32) 10/22/17 02:36 MCHC 34 % (32-34) 10/22/17 02:36 RDW 13.0 % (13.2-15.2) L 10/22/17 02:36 Plt Count 275 K/mm3 (140-440) 10/22/17 02:36 Lymph % (Auto) 21.1 % (13.4-35.0) 10/19/17 12:06 [place] % (Auto) 5.1 % (0.0-7.3) 10/19/17 12:06 Eos % (Auto) 0.9 % (0.0-4.3) 10/19/17 12:06 Baso % (Auto) 0.9 % (0.0-1.8) 10/19/17 12:06 Lymph # 2.6 K/mm3 (1.2-5.4) 10/19/17 12:06 [place] # 0.6 K/mm3 (0.0-0.8) 10/19/17 12:06 Eos # 0.1 K/mm3 (0.0-0.4) 10/19/17 12:06 Baso # 0.1 K/mm3 (0.0-0.1) 10/19/17 12:06 Seg Neutrophils % 72.0 % (40.0-70.0) H 10/19/17 12:06 Seg Neutrophils # 8.8 K/mm3 (1.8-7.7) H 10/19/17 12:06 PT 14.0 Sec. (12.2-14.9) 10/21/17 05:17 INR 1.03 (0.87-1.13) 10/21/17 05:17 APTT 35.0 Sec. (24.2-36.6) 10/19/17 12:06 D-Dimer 163.83 ng/mlDDU (0-234) 10/20/17 09:18 Sodium 137 mmol/L (137-145) 10/22/17 02:36 Potassium 3.9 mmol/L (3.6-5.0) D 10/22/17 02:36 Chloride 98.6 mmol/L (98-107) 10/22/17 02:36 Carbon Dioxide 24 mmol/L (22-30) 10/22/17 02:36 Anion Gap 18 mmol/L 10/22/17 02:36 BUN 28 mg/dL (9-20) H 10/22/17 02:36 Creatinine 1.1 mg/dL (0.8-1.5) 10/22/17 02:36 Estimated GFR > 60 ml/min 10/22/17 02:36 BUN/Creatinine Ratio 25 % 10/22/17 02:36 Glucose 122 mg/dL (75-100) H 10/22/17 02:36 POC Glucose 108 (70-105) H 10/21/17 07:15 Calcium 8.5 mg/dL (8.4-10.2) 10/22/17 02:36 Phosphorus 4.50 mg/dL (2.5-4.5) 10/22/17 02:36 Magnesium 1.90 mg/dL (1.7-2.3) 10/22/17 02:36 Troponin T < 0.010 ng/mL (0.00-0.029) 10/19/17 20:38 NT-Pro-B Natriuret Pep 8125 pg/mL (0-450) H 10/19/17 12:06 Urine Color Yellow (Yellow) 10/20/17 06:00 Urine Turbidity Clear (Clear) 10/20/17 06:00 Urine pH 5.0 (5.0-7.0) 10/20/17 06:00 Ur Specific [place] 1.016 (1.003-1.030) 10/20/17 06:00 Urine Protein 100 mg/dl mg/dL (Negative) 10/20/17 06:00 Urine Glucose (UA) Neg mg/dL (Negative) 10/20/17 06:00 Urine Ketones Neg mg/dL (Negative) 10/20/17 06:00 Urine Blood Neg (Negative) 10/20/17 06:00 Urine Nitrite Neg (Negative) 10/20/17 06:00 Urine Bilirubin Neg (Negative) 10/20/17 06:00 Urine Urobilinogen < 2.0 mg/dL (<2.0) 10/20/17 06:00 Ur Leukocyte Esterase Neg (Negative) 10/20/17 06:00 Urine WBC (Auto) 2.0 /HPF (0.0-6.0) 10/20/17 06:00 Urine RBC (Auto) 1.0 /HPF (0.0-6.0) 10/20/17 06:00 U Epithel Cells (Auto) < 1.0 /HPF (0-13.0) 10/20/17 06:00 Urine Mucus Few /HPF 10/20/17 06:00
--- NOTE | 2017-10-21 10:41 | Cardiac Catherization Report ---
LEFT HEART CATHETERIZATION CLINICAL INFORMATION: A 47-year-old gentleman with acute systolic heart failure with ejection fraction of 25%, is here for left heart catheterization for definitive diagnosis of coronary artery disease, cardiomyopathy. PROCEDURE: Left heart catheterization was performed via the right radial artery, sterile technique, local anesthesia, 6-Belgian radial sheath. PROCEDURE FINDINGS: Left system engaged with JL3.5 catheter. Left main large and patent, bifurcates into large LAD, is patent. Diagonal 1 is a medium caliber vessel, it is patent. Circumflex medium to large caliber vessel that is patent. OM1 is small caliber vessel. OM2 medium caliber vessel, it is patent. RCA is a large engaged with JR4 catheter, is a large dominant vessel, patent from proximally and distally. PDA and PLV are medium caliber vessels, patent. LV gram done in BIBI and ORTIZ view shows severe LV dysfunction, EF 25%. LVEDP of 12 mmHg, LV is 109/12. Aortic is 109/81. No gradient across the aortic valve on pullback. 5-Belgian catheters were taken over guidewire, 6-Belgian radial sheath was discontinued. Radial dressing applied. No hematoma, no bleeding. SUMMARY: 1. Normal coronary arteries, severe LV dysfunction. Right dominant system. Normal left end-diastolic pressure. 2. Nonischemic cardiomyopathy. Continue risk factor modification. Discussed results with the patient in detail. JOB# [id number] LIA/MIMA
--- NOTE | 2017-10-21 10:55 | Event Note ---
Date: 10/21/17 s/p [facility] this AM which showed normal coronary arteries, severe LV dysfunction, NICMP. Hold diuretics at this time given increase in serum Cr and repeat BMP in AM. Likely discharge home tomorrow AM. Kayode GALLEGOS NP / DR. CONROY
[2017-10-21] MEDS: ZESTRIL PO SCH (15:00)
[2017-10-21] MEDS: COREG PO SCH ×2 (15:00→22:03)
[2017-10-21] MEDS: HABITROL TD SCH (16:32)
[2017-10-22 02:54] LABS: Hematocrit 56.7 % (35.5-45.6); Mean Corpuscular HGB Conc 34 % (32-34); Mean Corpuscular Hemoglobin 31 pg (28-32); Mean Corpuscular Volume 93 fl (84-94); Platelet Count 275 K/mm3 (140-440); Red Blood Count 6.09 M/mm3 (3.65-5.03)
[2017-10-22 03:17] LABS: BUN/Creatinine Ratio 25; Blood Urea Nitrogen 28 mg/dL (9-20); Calcium 8.5 mg/dL (8.4-10.2); Carbon Dioxide 24 mmol/L (22-30); Glucose 122 mg/dL (75-100)
[2017-10-22 03:32] LABS: Anion Gap 18 mmol/L; Chloride 98.6 mmol/L (98-107); Potassium 3.9 mmol/L (3.6-5.0); Sodium 137 mmol/L (137-145)
[2017-10-22] MEDS: HEPARIN SUB-Q SCH (06:31)
[2017-10-22] MEDS: APRESOLINE PO SCH (08:23)
[2017-10-22 09:58] VITALS: BP 116/83
[2017-10-22] MEDS: HABITROL TD SCH (11:08)
[2017-10-22] MEDS: COREG PO SCH (11:08)
[2017-10-22] MEDS: ZESTRIL PO SCH (11:09)
--- NOTE | 2017-10-22 11:38 | Discharge Summary ---
Providers - Providers Date of Admission: 10/19/17 14:53 Attending physician: YVON ROSS MD 10/19/17 14:22 Consult to Physician [CONS] Urgent Consulting Provider: DENY CONROY Reason For Exam: new-onset CHF Place consult to:: arina Notified:: y 10/21/17 09:07 Consult to Cardiac Rehabilitation [CONS] Routine Reason For Exam: Cardiac Rehab Evaluation Primary care physician: HOROLOGIST APPRENTICE Hospitalization Reason for admission: acute systolic CHF, accelerated hypertension Condition: Stable Pertinent studies: Echo was done at cardiology clinic and showed ejection fraction of 20% Cardiac cath was done and showed clean coronary arteries Hospital course: 47 YO Male with HTN, Systolic CHF, Nicotine Dependence presents to ED for evaluation. Pt states that he has experienced shortness of breath and dypsnea on exertion for the past 6 months. Pt was seen in his cardiologists office today and found to have symptoms consistent with acute systolic CHF. Pt underwent Echo and found to have EF of 20%. Pt was sent to ED for evaluation. Pt acknowledges the aforementioned symptoms but denies fever, chills, palpitations, NVD, Syncope, productive cough, BRBPR, unintentional weight loss, night sweats, or recent ill contacts. Pt seen and evaluated in ED and found to have respiratory distress and treated with supplemental oxygen, nebulizer therapy, and diuresis. Cardiology Consulted in ED. Patient was admitted to the floor was diuresed adequately, appropriate CHF medications were started and discharged home in a stable condition. Patient is scheduled to be seen by cardiology as an outpatient and primary care physician was in 1 week. Disposition: - TO HOME OR SELFCARE Time spent for discharge: 31 minutes - Discharge Diagnoses (1) Accelerated hypertension Status: Acute (2) Acute systolic heart failure Status: Acute Core Measure Documentation - Palliative Care Palliative Care/ Comfort Measures: Not Applicable - Core Measures Any of the following diagnoses?: heart failure - Heart Failure Discharge Requirements VALORIE/ARB for LVSD if EF <40%: Yes Beta shweta at discharge: Yes Exam - Physical Exam Narrative exam: Not in cardiopulmonary distress. The patient appeared well nourished and normally developed. Vital signs as documented. Head exam is unremarkable. No scleral icterus . Neck is without jugular venous distension, thyromegaly, or carotid bruits. Lungs are clear to auscultation. Cardiac exam reveals regular rate and Rhythm. First and second heart sounds normal. No murmurs, rubs or gallops. Abdominal exam reveals normal bowel sounds, no masses, no organomegaly and no aortic enlargement. Extremities are nonedematous and both femoral and pedal pulses are normal. CLAIM EXAMINER: Alert and oriented 3. No focal weakness. - Constitutional Vitals: Temp Pulse Resp BP Pulse Ox 98.2 F 73 18 116/83 93 10/22/17 09:22 10/22/17 11:10/22/17 10:00 10/22/17 11:10/22/17 10:00 Plan Activity: no restrictions Weight Bearing Status: Full Weight Bearing Diet: low cholesterol, low salt Follow up with: [facility] [Provider Group] - 7 Days DENY CONROY MD [Staff Physician] - 7 Days PRIMARY CARE, [Primary Care Provider] - 7 Days Forms: CardCath PCI D/C Instructions Prescriptions: Carvedilol [Coreg] 25 mg PO Q12HR #60 tablet Lisinopril [Zestril TAB] 40 mg PO QDAY #60 tablet Nicotine [Habitrol] 21 mg TD QDAY #7 patch
--- NOTE | 2017-10-22 12:51 | Progress Note ---
Assessment and Plan Due to his BP, I have discontinued hydralazine. Due to nonsustained VT, I have requested a stat magnesium level. He may be discharged home if this is normal. I have explained to him that nonsustained VT is related to his cardiomyopathy and that ultimately, ICD implantation will be discussed at the office. Meanwhile, due to his recent increased creatinine level which has improved, he may go home on Lasix 20 mg by mouth daily with potassium 10 meq by mouth daily. He should follow-up with Dr. Cory Lynn at our office in one week. - Patient Problems (1) Acute combined systolic and diastolic heart failure Current Visit: Yes Status: Acute (2) Accelerated hypertension Current Visit: Yes Status: Resolved (3) Nonischemic cardiomyopathy Current Visit: Yes Status: Acute (4) Nonsustained ventricular tachycardia Current Visit: Yes Status: Acute Subjective Date of service: 10/22/17 Principal diagnosis: Acute combined S&D HF, Accelerated HTN Interval history: He has no complaint. Overnight, on the monitor, he has had brief runs of nonsustained VT. Objective Vital Signs Temp Pulse Pulse Resp BP Pulse Ox 10/22/17 11:09 73 116/83 10/22/17 11:08 73 116/83 10/22/17 11:00 70 10/22/17 10:00 73 18 93 10/22/17 09:22 98.2 F 73 18 116/83 93 10/22/17 05:10 97.8 F 76 20 120/87 92 10/22/17 00:49 97.7 F 70 18 107/74 94 10/21/17 20:36 98.4 F 74 18 115/77 91 10/21/17 19:35 74 10/21/17 16:42 99/74 10/21/17 16:27 97.5 F L 74 18 123/89 94 10/21/17 16:05 97.3 F L 72 18 111/70 95 10/21/17 15:00 71 99/74 - Physical Examination General: No Apparent Distress HEENT: Positive: EOMI, Normocephaly, Mucus Membranes Moist Neck: Positive: neck supple, trachea midline Cardiac: Positive: Reg Rate and Rhythm, S1/S2 Lungs: Positive: clear to auscultation Neuro: Positive: Grossly Intact Abdomen: Positive: Soft, Active Bowel Sounds. Negative: Tender Skin: Negative: Rash Musculoskeletal: Normal Range of Motion Extremities: Absent: edema - Labs and Meds CBC 10/22/17 Range/Units 02:36 WBC 14.0 H (4.5-11.0) K/mm3 RBC 6.09 H (3.65-5.03) M/mm3 Hgb 19.0 H (11.8-15.2) gm/dl Hct 56.7 H (35.5-45.6) % Plt Count 275 (140-440) K/mm3 Comprehensive Metabolic Panel 10/22/17 Range/Units 02:36 Sodium 137 (137-145) mmol/L Potassium 3.9 D (3.6-5.0) mmol/L Chloride 98.6 (98-107) mmol/L Carbon Dioxide 24 (22-30) mmol/L BUN 28 H (9-20) mg/dL Creatinine 1.1 (0.8-1.5) mg/dL Glucose 122 H (75-100) mg/dL Calcium 8.5 (8.4-10.2) mg/dL - Imaging and Cardiology EKG: report reviewed, image reviewed Echo: image reviewed (normal LV cavity size with severe global hypokinesis. EF : 15-20%. Restrictive pattern of diastolic LV dysfunction, moderate MR and TR.) Cardiac cath: report reviewed (normal coronaries and severe lv dsyfunction ) - Telemetry EKG Rhythm: V-Tachycardia (nonsustained) - EKG Sinus rhythms and dysrhythmias: sinus rhythm
[2017-10-23] MEDS ORDERED: LASIX PO SCH (10:00)
== END 2017-10-22 13:15 | disposition home or self-care (01) | DRG 286 ==
LOC: ED 11:44 → 4A 14:53
PROVIDERS: ADMIT Internal Medicine; ATTEND Internal Medicine
PROC: 4A023N7 Measurement of Cardiac Sampling and Pressure, Left Heart, Percutaneous Approach (ICD-10-PCS; principal; 2017-10-21)
PROC: B2111ZZ Fluoroscopy of Multiple Coronary Arteries using Low Osmolar Contrast (ICD-10-PCS; 2017-10-21)
DX: I11.0 Hypertensive heart disease with heart failure (principal); J96.90 Respiratory failure, unspecified, unspecified whether with hypoxia or hypercapnia; I47.2 Ventricular tachycardia; D72.829 Elevated white blood cell count, unspecified; F17.210 Nicotine dependence, cigarettes, uncomplicated; I42.9 Cardiomyopathy, unspecified; I50.41 Acute combined systolic (congestive) and diastolic (congestive) heart failure; D75.1 Secondary polycythemia
CPT/HCPCS: 36415; 71010; 80048; 81001; 82962; 83735; 83880; 84100; 84484; 85025; 85027; 85379; 85610; 85730; 93005; 93010; 93458; 96374; 99285; 99406; C1894; J1644; J1940; J2250; J3010; J7040; Q9967